=== PATIENT | male | born 1965 | race Caucasian/White ===

== ENCOUNTER 2023-02-09 13:11 | Emergency (ER) | payer MEDICAID ==
[~2023-02-09] VITALS: Ht 182.9 cm; Wt 79.4 kg
[~2023-02-09 13:11] MED LIST: TRAM50TA2 PO
[2023-02-09 13:39] VITALS: BP 142/78; TEMP 98.7; O2SAT 98
== END 2023-02-09 14:46 | disposition home or self-care (01) ==
LOC: ER 13:13
DX: Z76.0 Encounter for issue of repeat prescription (principal); J45.909 Unspecified asthma, uncomplicated; Z79.899 Other long term (current) drug therapy; Z60.2 Problems related to living alone